=== PATIENT | male | born 1990 | race Two or more races ===

== ENCOUNTER 2019-03-05 23:45 | Emergency (ER) | payer MEDICAID ==
[~2019-03-05] VITALS: Ht 172.7 cm; Wt 72.6 kg
[2019-03-06 00:05] VITALS: BP 122/89
[2019-03-06 00:36] LABS: APPEARANCE,URINE Clear (CLEAR); BILIRUBIN,URINE SMALL (NEGATIVE); BLOOD, URINE Trace-intact Ery/uL (NEGATIVE); COLOR,URINE Yellow (YELLOW); KETONES,URINE Negative (NEGATIVE); LEUKOCYTE ESTERASE ,URINE Negative (NEGATIVE); NITRITE, URINE Negative (NEGATIVE); PROTEIN,URINE Negative (NEGATIVE); UGLUCOSE Negative (NEGATIVE)
--- NOTE | 2019-03-06 00:43 | NUR ---
ULTRASOUND AT BEDSIDE
[2019-03-06 01:15] LABS: BACTERIA,URINE None seen /HPF (None Seen); SQUAMOUS EPITHELIAL CELL,UR Few /HPF (None Seen); WBC,URINE 0-2 /HPF (0-3)
[2019-03-06] MEDS ORDERED: CEFTRIAXONE 500 MG VIAL ONE (01:24)
[2019-03-06] MEDS ORDERED: AZITHROMYCIN 250 MG TABLET ONE (01:25)
[2019-03-06] MEDS ORDERED: LIDOCAINE 2% 20 ML MDV ONE (01:25)
[2019-03-06] MEDS ORDERED: AZITHROMYCIN 250 MG TABLET PO ONE (01:30)
[2019-03-06] MEDS ORDERED: CEFTRIAXONE 500 MG VIAL IM ONE (01:30)
--- NOTE | 2019-03-06 01:33 | NUR ---
Patient discharged to home in stable condition. Written and verbal after care instructions given. Patient verbalizes understanding of instruction.
== END 2019-03-06 01:34 | disposition home or self-care (01) ==
LOC: ER 23:48
DX: N45.1 Epididymitis (principal)
CPT/HCPCS: 76870; 81001; 87491; 87591; 96372; 99284; J0696; J3490; 81000-TC